=== PATIENT | female | born 1955 | race Caucasian/White ===

== ENCOUNTER → 2017-07-16 | Outpatient (CLI) | payer MEDICARE | LOC: KOH-I 08:00 | DX: D16.8 Benign neoplasm of pelvic bones, sacrum and coccyx (principal); M54.5 Low back pain; Z85.038 Personal history of other malignant neoplasm of large intestine; M51.26 Other intervertebral disc displacement, lumbar region; M51.37 Other intervertebral disc degeneration, lumbosacral region | CPT/HCPCS: 72148 ==